=== PATIENT | male | born 2000 | race Caucasian/White ===

== ENCOUNTER 2024-07-10 12:31 | Emergency (ER) | payer BC, SELFPAY ==
[2024-07-10 12:40] VITALS: BP 137/68; PULSE 100; RESP 16; TEMP 37; O2SAT 100
--- NOTE | 2024-07-10 13:05 | ED.SKABFB ---
HPI - Skin/Abscess/Foreign Bdy General Chief complaint: Skin/Abscess/Foreign Body Stated complaint: Skin Sore Time Seen by Provider: 07/10/24 13:23 Source: patient and RN notes reviewed Mode of arrival: ambulatory Limitations: dementia History of Present Illness HPI narrative: 23-year-old male presents with concern for assist itis tailbone. Reports history of pilonidal cyst 3 years ago and had it drained, he did not see a surgeon for that. He reports the symptoms started 3 days ago. Between 1st and since 3 years ago and now he has not had any issues with cysts. He denies fever, body aches, chills, sweats. Denies drainage from the area. MD complaint: other (Redness) Related Data Allergies Allergy/AdvReac Type Severity Reaction Status Date / Time No Known Allergies Allergy Unverified 07/10/24 13:00 Review of Systems Review of Systems: CONSTITUTIONAL: Denies malaise, chills, sweats, or fever. CARDIOVASCULAR: Denies chest pain, palpitations, or edema. RESPIRATORY: Denies cough or dyspnea. GASTROINTESTINAL: Denies abdominal pain, nausea, vomiting SKIN: Reports redness, swelling, tenderness at the tailbone. Denies purulent drainage, vesicles, bullae, numbness, pain beyond proportion MUSCULOSKELETAL: Denies myalgia. NEUROLOGIC: Denies headache. All systems reviewed & are unremarkable except as noted in HPI and below PMFSH Comments At time of signature, agree with nursing past medical, surgical, social and family history. There is no relevant family history pertinent to the presenting complaint Exam Narrative: GENERAL: Well-appearing, well-nourished, and in no acute distress. HEAD: Normocephalic, atraumatic. EYES: PERRLA, conjunctivae clear ENT: Mucous membranes moist. NECK: Supple. No lymphadenopathy CHEST: Clear to auscultation. No respiratory distress. HEART: Regular rate and rhythm. SKIN: Warm, dry. No vesicles, bullae, necrosis, ecchymosis, crepitus noted. NEURO: Alert and oriented x3. PSYCH: Normal mood and affect Back/Spine/Pelvis: Back/spine/pelvis image:  1. Approximately 7 cm x 4 cm raised, fluctuant area of Erythema, induration, tenderness, warmth with sharp margins Course Course Emergency Course: Patient is aware of diagnosis, understands and agrees to treatment plan. Anticipatory guidance given. Patient agrees to follow-up as directed and is aware of reasons to seek care at the emergency department. Portions of this record may have been created with voice recognition software Level of Care: Express Care Visit Vital Signs Vital signs: Vital Signs Temperature 98.6 F 07/10/24 12:40 Pulse Rate 100 07/10/24 12:40 Respiratory Rate 16 07/10/24 12:40 Blood Pressure 137/68 07/10/24 12:40 Pulse Oximetry 100 07/10/24 12:40 Oxygen Delivery Room Air 07/10/24 12:40 Temperature 98.6 F 07/10/24 12:40 Pulse Rate 100 07/10/24 12:40 Respiratory Rate 16 07/10/24 12:40 Blood Pressure 137/68 07/10/24 12:40 Pulse Oximetry 07/10/24 12:40 Oxygen Delivery Room Air 07/10/24 12:40 Reviewed. Procedures Abscess I/D other: Date of Incision: 07/10/24 Time of Incision: 13:33 Side (if applicable): left Local Anesthetic: lidocaine 1% Amount of anesthesia used (mL): 4 Technique: incised with #11 blade Amount of fluid expressed (mL): 15 Irrigation: Yes Packing used?: none I&D Results: Pus, Blood (with clots) and Other MDM - Skin/Abscess/Foreign Bdy MDM Narrative Medical decision making narrative: I evaluated this in the [facility] care. History is obtained from patient who is an independent historian and physical exam was performed.? Available medical records were reviewed. ? Exam findings and relevant testing show no acute concerns or changes; patient is non-toxic appearing and is in no distress. No risk factors or findings concerning for epidural abscess, diskitis, vertebral osteomyelitis, cord compression, cauda equina, vertebral fracture or bone malignancy, AAA, or pyelonephritis. Patient instructed to consider further imaging and workup through their primary care physician as an outpatient if symptoms persist. Does not appear at this time to be erythema multiforme, bullous, SJS, TEN; no evidence at this time to suggest RMSF, NSTI, endocarditis or Lyme disease; patient looks well, nontoxic and is tolerating oral intake; no neurologic signs or symptoms; no headache, photophobia or neck pain; afebrile.? Patient does not have history of of penetrating trauma, laceration, blunt trauma, recent surgery, immunosuppression, malignancy, obesity, alcoholism, corticosteroid use.? Discussed the importance of follow-up, patient agrees; question, cellulitis versus necrotizing soft tissue infection versus abscess.?? Patient is appropriate for outpatient treatment and follow-up. Critical Care Time Critical Care Time Critical Care Time: No Discharge Plan Discharge Clinical Impression: Abscess Patient Disposition: Home, Self-Care Condition: Stable Instructions: Antibiotic Form, Pilonidal Cyst (ED) Additional Instructions: You have had an abscess drained at [facility]. You may shower - let the soapy water clean your wound, do not scrub it. Keep your wound covered to prevent transmission of infection to other people. Follow up with your primary care physician or in the Emergency Department in 2-3 days for a wound check. Go to the Emergency Department immediately if you develop any of the following symptoms: Fevers, Increased redness or swelling around where your abscess was, Increased pain, or Generalized weakness or vomiting Please Keep the wound covered and dry. Once a day: wash the wound with soap/water, apply bacitracin or neosporin and re-cover the wound. If you have any worsening of symptoms, including severe pain/swelling/numbness/changes in sensation/weakness, redness which expands more than it is right now or any other concerns please return to the ED immediately. Patient Language: Belarusian Prescriptions: New amoxicillin-pot clavulanate 875-125 mg tablet 1 tablet PO Q12H 10 Days Qty: 20 0RF Follow-up/Referrals: UNKNOWN,DOCTOR [Primary Care Provider] - Stand Alone Forms: Work/School Release IP Time of Disposition: 14:00
--- OUTSIDE RECORDS SUMMARY | 2024-07-10 13:51 | XMS_ITS | Clinical Summary ---
Author Organization [facility] [employer] Address [address] [place] [address] Care Team Providers Care Protective Signal Superintendent Name Role Phone Tony Pham MD Primary Care Provider [phone] Source Comments [facility] [employer],non-owned Affiliates and Associated Physician Practices is amultiple site organization consisting of ambulatory clinics and hospital sitesin [place], [place], [place] and [place]. This disclosure is being madepursuant to the Care Everywhere program and may not contain all information available regarding this patient. Last updated 18.[employer] Allergies No known active allergies Medications Be aware that medications may not be up to date on this document. Always verify current medications with the patient. No known medications Active Problems No known active problems Immunizations Name Administration Dates Next Due MENINGOCOCCAL CONJUGATE (MCV4P) 01/15/2018 Social History Tobacco Use Types Packs/Day Years Used Date Smoking Tobacco: Never Smokeless Tobacco: Never Tobacco Cessation:Counseling Given: Yes Alcohol Use Standard Drinks/Week Comments Never 0 (1 standard drink = 0.6 oz pur e alcohol) AUDIT-C Answer Date Recorded Q1: How often do you have a drink containing alc ohol? Never 12/20/2019 Average Number of Drinks Not on file 020 Frequency of Binge Drinking Not on file 12/06 PHQ-2 Answer Date Recorded PHQ2 TOTAL SCORE 0 12/24/2020 Sex and Gender Information Value Date Recorded Sex Assigned at Not on file Gender Identity Not on file Sexual Orientation Not on file Last Filed Vital Signs Vital Sign Reading Time Taken Comments Blood Pressure 104/72 12/24/2020 11:57 AM CDT Pulse 78 12/24/2020 11:57 AM CDT Temperature 36.7 C (98 F) 12/24/2020 11:57 AM CDT Respiratory Rate 16 12/24/2020 11:57 AM CDT Oxygen Saturation 98% 12/24/2020 11:57 AM CDT Inhaled Oxygen Concentration - - Weight 83 kg (183 lb) 12/24/2020 11:57 AM CDT Height 187 cm (6' 1.62 ) 12/24/2020 11:57 AM CDT Body Mass Index 23.74 12/24/2020 11:57 AM CDT Plan of Treatment Health Maintenance Due Date Last Done Comments HIV SCREENING 07/16/2015 HPV VACCINE (1 - Male 3-dose series) 07/16/2015 MENINGOCOCCAL (Group B) VACC INE (1 of 2 - Standard) 2016 HEPATITIS C SCREENING 07/11/2018 DTAP/TDAP/TD VACCINES (1 - Tdap) 07/16/2019 HEPATITIS B VACCINE (1 of 3 - 19+ 3-dose series) 07/16/2019 COVID-19 VACCINE (1 - 2023-2 5 season) 2024 INFLUENZA VACCINE (#1) 2024 DEPRESSION SCREENING 05/08/2024 ZOSTER VACCINE (1 of 2) 2050 MENINGOCOCCAL VACCINE Completed 01/15/2018 HIB VACCINE Aged Out No longer eligi ble based on patient's age to complete this topic PNEUMOCOCCAL VACCINE Aged Out No long er eligible based on patient's age to complete this topic Care Teams Protective Signal Superintendent Relationship Specialty Start Date End Date Tony Pham MD [address] [place] [address] PCP - General Pediatrics 01/15/18
--- OUTSIDE RECORDS SUMMARY | 2024-07-10 13:51 | XMS_ITS | Referral Summary ---
Author Organization [facility] Address [address] [place] [address] Care Team Providers Care Donor Relations Coordinator Name Role Phone Tony Pham MD Primary Care Provider [phone] Source Comments [facility],non-owned Affiliates and Associated Physician Practices is amultiple site organization consisting of ambulatory clinics and hospital sitesin [place], [place], [place] and [place]. This disclosure is being madepursuant to the Care Everywhere program and may not contain all information available regarding this patient. Last updated 18.[facility] Allergies No known active allergies Medications Be [...] 12/24/2020 11:57 AM CDT Plan of Treatment Not on file Care Teams Donor Relations Coordinator Relationship Specialty Start Date End Date Tony Pham MD [address] [place] [address] PCP - General Pediatrics 01/15/18
--- OUTSIDE RECORDS SUMMARY | 2024-07-10 13:51 | XMS_ITS | Patient Health Summary ---
Author Organization [facility] [employer] Address [address] [place] [address] Care Team Providers Care Nipple Machine Operator Name Role Phone Tony Pham MD Primary Care Provider Note from [facility] [employer] [employer],non-owned Affiliates and Associated Physician Practices is amultiple site organization consisting of ambulatory clinics and hospital sitesin [place], [place], [place] and [place]. This disclosure is being madepursuant to the Care Everywhere program and may not contain all information available regarding this patient. Last updated 18.[facility] [employer] Allergies No known active allergies Medications Be aware that medications may not be up to date on this document. Always verify current medications with the patient. No known medications Active Problems No known active problems Immunizations * MENINGOCOCCAL CONJUGATE (MCV4P)(Given 01/15/2018) Social History Tobacco Use Types Packs/Day Years [...] Mass Index 23.74 12/24/2020 11:57 AM CDT Procedures * STREP A SCREEN - POINT OF CARE (AMB) STL(Performed 04/19/2018) Performed for Viral upper respiratory tract infection Results * STREP A SCREEN (04/19/2018) Strep A Rapid POCT Negative Negative Strep A Internal Control Present Lot # [id number] Expiration Date 08/30/2019 Throat ENTIRE THROAT (SURFACE REGION OF NECK) / Unknown 04/19/2018 Tasha Fernández [facility] - POINT OF CARE ORDERABLES Care Teams Nipple Machine Operator Relationship Specialty Start Date End Date Tony Pham MD [address] [place] [address] PCP - General Pediatrics 01/15/18
== END 2024-07-10 14:20 | disposition home or self-care (01) ==
PROVIDERS: Emergency Provider Nurse Practitioner
DX: L05.01 Pilonidal cyst with abscess (principal)
CPT/HCPCS: 10080; 87070; 87075; 87205; 99213; G0463; J2003